=== PATIENT | male | born 1970 | race Caucasian/White ===

== ENCOUNTER → 2016-04-01 | Outpatient (CLI) | payer BC, OTHER ==
[~2016-04-01] MED LIST: CMBIN INH; FLUO40CA8 PO; LISI-461 PO; LSX/40 PO; OXGN; POTA20TA16 PO; TRIA1SPR4 NAE; [UNRECOGNIZED DRUG - CODE] PO
[2016-04-01 16:02] LABS: BASO % 0.1 %; BASO ABS # 0.01 K/uL (0-0.2); COMPLETE YES; EOS % 1.8 %; HEMATOCRIT 49.5 % (42-52); IG% 0.3 %; LYMPH % 25.5 %; LYMPH ABS # 2.01 K/uL (1.2-3.4); MEAN CELL VOLUME 90.8 fL (80-100); MEAN CORPUSCULAR HGB CONC 31.9 g/dl (32-36); MONO % 7.6 %; NEUT % 64.7 %; PLATELET COUNT 181 K/uL (130-400); RED BLOOD COUNT 5.45 M/uL (4.7-6.1); WHITE BLOOD COUNT 7.89 K/uL (4.8-10.8)
[2016-04-01 16:12] LABS: ALT/SGPT 32 U/L (12-78); AST/SGOT 18 U/L (15-37); BLOOD UREA NITROGEN 28 mg/dl (7-18); BUN/CREATININE RATIO 27.7 (10-20); CARBON DIOXIDE 29 mmol/L (21-32); CHLORIDE 103 mmol/L (98-107); GLUCOSE 111 mg/dl (70-99); POTASSIUM 4.4 mmol/L (3.5-5.1); SODIUM 141 mmol/L (136-145)
[2016-04-01 16:22] LABS: ALB/GLOB RATIO 1.1 (0.9-2); ALKALINE PHOSPHATASE 62 U/L (45-117); CHOLESTEROL 197 mg/dl (0-200); CHOLESTEROL/HDL RATIO 3.7; HDL CHOLESTEROL 53 mg/dl; TRIGLYCERIDES 111 mg/dl (0-150); VERY LOW DENSITY LIPOPROT CALC 22 mg/dl
[2016-04-02 06:20] LABS: ESTIMATED AVERAGE GLUCOSE 123 mg/dl; HA1C FLAG Normal (Normal)
== END | disposition home or self-care (01) ==
LOC: C.LABSPEC 15:01
PROVIDERS: ATTEND Internal Medicine
DX: I10 Essential (primary) hypertension (principal); E78.5 Hyperlipidemia, unspecified; E66.01 Morbid (severe) obesity due to excess calories

== ENCOUNTER → 2017-04-04 | Outpatient (CLI) | payer OTHER ==
[2017-04-04 13:50] LABS: BASO % 0.2 %; BASO ABS # 0.02 K/uL (0-0.2); EOS % 2.2 %; EOS ABS # 0.18 K/uL (0-0.5); HEMATOCRIT 46.7 % (42-52); HEMOGLOBIN 14.7 g/dL (14.0-18.0); IG# 0.04 K/uL (0.00-0.02); LYMPH % 34.5 %; LYMPH ABS # 2.86 K/uL (1.2-3.4); MEAN CELL VOLUME 94.3 fL (80-100); MEAN CORPUSCULAR HEMOGLOBIN 29.7 pg (25-34); MEAN CORPUSCULAR HGB CONC 31.5 g/dl (32-36); MEAN PLATELET VOLUME 10.6 fL (7.4-10.4); MONO % 7.1 %; MONO ABS # 0.59 K/uL (0.11-0.59); NEUT % 55.5 %; NEUT ABS # 4.61 K/uL (1.4-6.5); PLATELET COUNT 156 K/uL (130-400); RED CELL DISTRIBUTION WIDTH SD 50.9 fL (36.4-46.3)
[2017-04-04 14:03] LABS: ALBUMIN 3.9 gm/dl (3.4-5.0); ALT/SGPT 34 U/L (12-78); BLOOD UREA NITROGEN 15 mg/dl (7-18); CALCIUM 9.6 mg/dl (8.5-10.1); CARBON DIOXIDE 29 mmol/L (21-32); CHOLESTEROL 213 mg/dl (0-200); CREATININE 0.81 mg/dl (0.60-1.40); GLUCOSE 82 mg/dl (70-99); POTASSIUM 3.9 mmol/L (3.5-5.1); SODIUM 138 mmol/L (136-145)
[2017-04-04 14:06] LABS: ALKALINE PHOSPHATASE 55 U/L (45-117); AST/SGOT 27 U/L (15-37); LDL CHOLESTEROL (DIRECT) 149 mg/dl; TOTAL PROTEIN 7.8 gm/dl (6.4-8.2)
[2017-04-04 14:23] LABS: HEMOGLOBIN A1C 6.1 % (4.5-5.6)
== END | disposition home or self-care (01) ==
LOC: C.LABSPEC 13:24
PROVIDERS: ATTEND Internal Medicine
DX: I10 Essential (primary) hypertension (principal); E78.5 Hyperlipidemia, unspecified; R73.9 Hyperglycemia, unspecified

== ENCOUNTER → 2017-10-06 | Outpatient (CLI) | payer OTHER ==
[~2017-10-06] MED LIST changes: +POTA-639 PO; -POTA20TA16 PO
--- NOTE | 2017-10-07 06:41 | SPLIT NIGHT TECHNICIAN REPORT ---
[facility] [place] Split Night Polysomnogram - Hourly Team Members Report Study date: 10/06/2017 Referring Physician: Dr. Juliette Scanlon M.D. Name: RUBEN AGUERO Hourly Team Members: KIRT Joseph. Date of : 1970 Height: 46 years, Height 5' 7" Sex: Male Weight: 482 lbs Age: 46 Neck Circum:24in. BMI: Medications: 75.48 Naproxen 500 mg, Fluoxetine 40 mg, Furosemide 40 mg, Lisinopril 10 mg, Potassium Chloride 10 MEQ, Oxygen 2 Liters Patient History Study started on 1 lpm oxygen with ETC02 monitoring in room #8. 46 yr. old male here for a possible split night sleep study if AHI >5. Patient has a history of Edema, HTN, joint pain and morbid obesity. He had a sleep study over 14 years ago that was positive for YECENIA but he was never treated. He is hoping to have gastric bypass surgery and this study is required. Patient complains of EDS and snoring. ESS 01/31 Neck Circ 24 inches. Parameters Monitored NPSG: E1-M2, E2-M1, Fp1-M2, Fp2-M1, F3-M2, F4-M2, F4-M1, C3-M2, C4-M2, C4-M1, O1-M2, O2-M2, O2-M1, T3-M2, T4-M1, P3-M2, P4-M1, CHIN1, CHIN2, HR, EKG, Legs, PFLOW, SNOR, FLOW, CFLOW, Tidal Volume, THOR, ABDO, SpO2, PLTH, CPRESS, ETCO2 Wave, ETCO2, pH SLEEP SUMMARY DATA DIAGNOSTIC TREATMENT Lights Out: 10:29:32 PM 1:09:32 AM Lights On: 12:58:32 AM 5:18:02 AM Total Recording Time (TRT): 149.0 min. 248.5 min. Total Sleep Time (TST): 125.0 min. 221.5 min. NREM Time: 125.0 min. 177.0 min. REM Time: 0.0 min. 44.5 min. Sleep Period Time (SPT): 127.0 min. 231.0 min. Sleep Efficiency (SE): 84 % 89 % Sleep Latency: 22.0 min. 17.0 min. Arousal Index: 8.6 4.6 PAP Treatment Levels: 5, 6, 7, 8, 10, 11/7 * Optimal Pressure(s) SLEEP STAGING DATA DIAGNOSTIC TREATMENT Duration (min) TST % Duration (min) TST % Stage Wake: 24.0 min. -- 27.0 min. -- WASO: 2.0 min. -- 9.5 min. -- NREM: 125.0 min. 100 % 177.0 min. 80 % Stage N1: 9.0 min. 7 % 16.0 min. 7 % Stage N2: 116.0 min. 93 % 137.0 min. 62 % Stage N3: 0.0 min. 0 % 24.0 min. 11 % REM: 0.0 min. 0 % 44.5 min. 20 % POSITIONAL DATA Event Count Index Event Count Index Supine: 70 34 38 10.3 Supine NREM: 70 33.6 12 4.1 Supine REM: N/A N/A 26 35 Non-Supine: N/A N/A N/A N/A Non-Supine NREM: N/A N/A N/A N/A Non-Supine REM: N/A N/A N/A N/A AROUSAL SUMMARY DATA: Event Count Index Event Count Index Apnea Arousals: 0 0.0 0 0.3 Hypopnea Arousals: 7 3.4 4 1.1 Snore Arousals: 3 1.4 5 1.4 PLM Arousals: 0 0.0 0 0.0 Non-Specific Arousals: 8 3.8 9 2.4 Total Arousals: 18 8.6 17 4.6 MYOCLONUS (PLM) Event Count Index Event Count Index PLM: 0 0.0 0 0.0 PLM AROUSAL: 0 0.0 0 0.0 PLM W/O AROUSAL 0 0.0 0 0.0 PLM W/RESP EVENT 0 0.0 0 0.0 MYOCLONUS (PLM) Event Count Index Event Count Index LM: 0 5.8 16 4.3 LM AROUSAL: 0 0.0 0 0.0 LM W/O AROUSAL LM W/RESP EVENT LM NON SPECIFIC 7 3.4 16 4.3 HEART RATE DATA DIAGNOSTIC TREATMENT Sleep (bpm): 72 62 REM (bpm): N/A 85 NREM (bpm): 93 92 Tachycardia Count: 0 0 Tachycardia Duration: 0.00 0 Bradycardia Count: 0 0 Bradycardia Duration: 0.00 0 DIAGNOSTIC PORTION TREATMENT PORTION RESPIRATORY DATA Event Count Index Event Count Index AHI: -- 33.6 -- 10.3 RDI: -- 33.6 -- 10 Obstructive Apnea: 0 0.0 1 0.3 Central Apnea: 0 0.0 0 0.0 Mixed Apnea: 0 0.0 0 0.0 Hypopnea: 70 33.6 37 10.0 RERA: 0 0.0 0 0.0 Total Apneas: 0 0.0 1 0.3 RESPIRATORY DATA REM NREM SLEEP REM NREM SLEEP Supine Position: Obstructive Apneas: N/A 0 0 0 1 1 Central Apneas: N/A 0 0 0 0 0 Mixed Apneas: N/A 0 0 0 0 0 Hypopneas: N/A 70 70 26 11 37 RERA N/A 0 0 0 0 0 Total Supine Events: N/A 70 70 26 12 38 Supine AHI: N/A 33.6 34 35 4.1 10.3 Supine RDI: N/A 33.6 33.6 35.1 4.1 10.3 REM NREM SLEEP REM NREM SLEEP Non-Supine Position: Obstructive Apneas: N/A N/A N/A N/A N/A N/A Central Apneas: N/A N/A N/A N/A N/A N/A Mixed Apneas: N/A N/A N/A N/A N/A N/A Hypopneas: N/A N/A N/A N/A N/A N/A RERA N/A N/A N/A N/A N/A N/A Total Supine Events: N/A N/A N/A N/A N/A N/A Supine AHI: N/A N/A N/A N/A N/A N/A Supine RDI: N/A N/A N/A N/A N/A N/A OXYGEN DESTAURATION DATA: Event Count Index Event Count Index REM Desaturations: N/A N/A 36 48.5 NREM Desaturations: 77 37.0 30 10.2 SNORE DATA DIAGNOSTIC TREATMENT Snore Time: 48.6 1:26:32 AM Snore TST%: 22 17 Snore Arousal Count: 3 5 Snore Arousal Index: 1.4 1.4 Desaturation Event Summary: Minimum %SpO2 Event Count Mean/Min/Max Duration(sec.) Desaturation Index % Time In Bed > 90 130 32.6 / 7.8 / 59.5 27.7 71.8 86 - 90 27 25.4 / 5.0 / 51.3 20.1 20.5 81 - 85 15 24.3 / 7.8 / 39.8 40.3 5.7 76 - 80 5 20.4 / 13.5 / 32.3 44.0 1.7 71 - 75 0 N/A 0.0 0.3 66 - 70 0 N/A 0.0 0.0 61 - 65 0 N/A 0.0 0.0 56 - 60 0 N/A 0.0 0.0 51 - 55 0 N/A 0.0 0.0 < 50 0 N/A 0.0 0.0 OXYGEN SATURATION DATA DIAGNOSTIC TREATMENT SpO2 Mean Sleep: 93 % 90 % SpO2 Mean REM: N/A % 85 % SpO2 Mean NREM: 93 % 92 % SpO2 Minimum Sleep: 87 % 71 % SpO2 Minimum REM: N/A % 71 % SpO2 Minimum NREM: 87 % 81 % Time Below 90% (TST): 4.4 69.8 Time Below 88% (TST): 0.2 46.1 Total REM NREM Awake <50% 0.0 min. 0.0 min. 0.0 min. 0.0 min. 51 - 60% 0.0 min. 0.0 min. 0.0 min. 0.0 min. 61 - 70% 0.0 min. 0.0 min. 0.0 min. 0.0 min. 71 - 80% 8.0 min. 8.0 min. 0.0 min. 0.0 min. 81 - 90% 102.8 min. 31.8 min. 60.6 min. 10.3 min. 91 - 100% 281.6 min. 4.7 min. 238.0 min. 38.9 min. Average 91 85 92 93 Minimum SpO2 71 71 81 81 Desaturation Event Index 24.2 48.5 21.3 20.0 # Desat. Events below 89% 59 35 20 4 Time(%) with Saturation below 89% 15.5 9.0 6.2 0.3 Time(min.) with Saturation below 89% 60.8 35.3 24.3 1.3 Recording Hourly Team Members Comments: Mr. Aguero slept in the supine positions. No cardiac arrhythmia or PLM's noted. No bruxism noted. Snoring was noted and scored as a 4 on a scale of 1 through 5. (0=no snoring, 5=snoring loud enough to be heard through a closed door or down the [address] way) At 1:09am he had met specific Split-Night criteria during the diagnostic portion of this study. CPAP was initiated at +5 CMH2O and up-titrated to a level of +10 CMH2O. He was then switched to bi-pap ending with a setting of IPAP of +04QET3O and an EPAP of +7CMH2O with 1lpm oxygen. A large Simplus full facemask by [employer] was used during titration. He did not use the restroom during the night. He stated that he slept fair. The final report will be interpreted and signed by a sleep physician. The completed physician report will then be placed in the patient medical record. Therapy Event: Therapy (cm H20) 0 5 6 7 8 10 11/7 Total Time at Pressure (min.) 147.0 45.7 47.4 11.9 15.8 25.2 102.5 TST at Pressure (min.) 125.0 27.7 47.4 11.9 15.8 24.2 94.5 # Periods 1 1 1 1 1 1 1 Sleep Onset (min.) 20.0 17.0 0.0 0.0 0.0 0.0 0.0 REM Onset (min.) N/A N/A N/A 2.9 0.0 0.0 N/A Sleep Efficiency % 85 60 100 100 100 96 92 Wakefulness (%) 15.0 39.4 0.0 0.0 0.0 4.0 7.8 Wakefulness (min.) 22.0 18.0 0.0 0.0 0.0 1.0 8.0 NREM 1 (%) 6.1 13.1 0.0 0.0 0.0 16.0 5.8 NREM 1 (min.) 9.0 6.0 0.0 0.0 0.0 4.0 6.0 NREM 2 (%) 78.9 45.9 70.7 0.0 0.0 2.0 80.0 NREM 2 (min.) 116.0 21.0 33.5 0.0 0.0 0.5 82.0 NREM 3 (%) 0.0 1.6 29.3 24.4 0.0 0.0 6.3 NREM 3 (min.) 0.0 0.7 13.9 2.9 0.0 0.0 6.5 REM (%) 0.0 0.0 0.0 75.6 100.0 78.0 0.0 REM (min.) 0.0 0.0 0.0 9.0 15.8 19.7 0.0 # Arousals 18 3 2 1 0 3 8 Arousal Index 8.6 6.5 2.5 5.0 0.0 7.4 5.1 # Snore 1,129 187 406 50 46 44 447 Snore Index 541.9 404.7 514.3 251.7 174.3 109.1 283.9 AHI 33.6 13.0 6.3 30.2 45.5 22.3 0.0 AHI Supine 33.6 13.0 6.3 30.2 45.5 22.3 0.0 AHI Non-Supine N/A N/A N/A N/A N/A N/A N/A NREM AHI 33.6 13.0 6.3 20.6 N/A 0.0 0.0 REM AHI N/A N/A N/A 33.3 45.5 27.5 N/A RDI 33.6 13.0 6.3 30.2 45.5 22.3 0.0 # Obstructive 0 0 0 1 0 0 0 # Central Ap 0 0 0 0 0 0 0 # Mixed 0 0 0 0 0 0 0 # Hypopneas 70 6 5 5 12 9 0 RERAS 0 0 0 0 0 0 0 Total Respiratory Events 70 6 5 6 12 9 0 Time Below SpO2 89.00% (min.) 0.9 3.8 16.9 7.4 12.9 15.4 2.4 Mean NREM SpO2 (%) 93 90 90 91 N/A 93 93 Mean REM SpO2 (%) N/A N/A N/A 83 84 86 N/A Mean Sleep SpO2 (%) 93 90 90 85 84 87 93 Min NREM SpO2 (%) 87 82 82 88 N/A 81 86 Min REM SpO2 (%) N/A N/A N/A 76 71 72 N/A Position Supine (min.) 125.0 27.7 47.4 11.9 15.8 24.2 94.5 Position Non-supine (min.) 0.0 0.0 0.0 0.0 0.0 0.0 0.0 LM Index Sleep 5.8 8.7 3.8 5.0 0.0 2.5 4.4 LM Index NREM 5.8 8.7 3.8 0.0 N/A 0.0 4.4 LM Index REM N/A N/A N/A 6.7 0.0 3.1 N/A Mean Heart Rate (bpm) 72 63 63 71 73 65 59 Min Heart Rate (bpm) 38 55 51 55 53 53 52
== END | disposition home or self-care (01) ==
LOC: C.NEUR 21:00
PROVIDERS: ATTEND Internal Medicine
DX: G47.33 Obstructive sleep apnea (adult) (pediatric) (principal)